=== PATIENT | male | born 1945 | race Caucasian/White ===

== ENCOUNTER → 2016-12-13 | Outpatient (CLI) | payer OTHER | LOC: HEART 5 11:38 | DX: J44.9 Chronic obstructive pulmonary disease, unspecified (principal); M19.90 Unspecified osteoarthritis, unspecified site; R94.2 Abnormal results of pulmonary function studies | CPT/HCPCS: 94060; 94729 ==

== ENCOUNTER → 2016-12-19 | Outpatient (CLI) | payer OTHER | LOC: CT 13:43 | DX: J60 Coalworker's pneumoconiosis (principal); R91.8 Other nonspecific abnormal finding of lung field | CPT/HCPCS: 71250 ==